=== PATIENT | male | born 1985 | race Two or more races ===

== ENCOUNTER 2017-08-11 21:22 | Emergency (ER) | payer SELFPAY ==
[~2017-08-11] VITALS: Ht 188 cm; Wt 70.0 kg
[2017-08-11 21:56] VITALS: BP 117/72
== END 2017-08-11 22:04 | disposition home or self-care (01) ==
LOC: ED 21:58
DX: F41.1 Generalized anxiety disorder (principal)
CPT/HCPCS: 99283